=== PATIENT | female | born 1960 | race Two or more races ===

== ENCOUNTER 2024-07-03 18:42 | Emergency (ER) | payer OTHER ==
[~2024-07-03] VITALS: Ht 154.9 cm; Wt 54.9 kg
[2024-07-03] MEDS ORDERED: CIPROFLOXACIN IN 5 % DEXTROSE 400 MG/200 ML PIGGYBAG IV ONE (19:45)
[2024-07-03] MEDS ORDERED: FAMOtidine 10 MG/ML (4ML VIAL) IV ONE (19:45)
[2024-07-03] MEDS ORDERED: 0.9 % SODIUM CHLORIDE 1,000 ML IV ONE (19:45)
[2024-07-03] MEDS ORDERED: KETOROLAC TROMETHAMINE 60 MG VIAL IM ONE (19:45)
[2024-07-03] MEDS ORDERED: ONDANSETRON HCL 2 MG/ML VIAL IV ONE (19:45)
[2024-07-03 19:56] LABS: HEMATOCRIT 35.3 % (36.0-45.00); HEMOGLOBIN 12.1 g/dL (12.0-15.00); MEAN CORPUSCULAR HEMOGLOBIN 30.5 pg (27.00-32.0); MEAN CORPUSCULAR HGB CONC 34.3 g/dl (32.0-36.0); PLATELET COUNT 369 K/uL (150-450); RED BLOOD COUNT 3.96 M/uL (4.00-6.00); RED CELL DISTRIBUTION WIDTH 13.8 % (11.5-14.5)
[2024-07-03 20:29] LABS: ALBUMIN 3.6 gm/dL (3.4-5.0); BILIRUBIN TOTAL 0.56 mg/dL (0.3-1.2); CALCIUM 8.9 mg/dL (8.5-10.1); CREATININE SERUM 0.98 mg/dL (0.55-1.02); GFR 57.5; GLOBULINA 3.9 G/DL (2.4-3.5); POTASSIUM 3.87 mEq/L (3.5-5.1); TOTAL PROTEIN 7.5 gm/dL (6.4-8.2)
[2024-07-03 21:23] LABS: PH,URINE 5.5 (5.0-8.0); URINE APPEARANCE Clear; URINE BILIRRUBIN Negative (NEGATIVE); URINE BLOOD Negative; URINE COLOR Dark Yellow; URINE GLUCOSE Negative (NEGATIVE); URINE KETONE Trace (NEGATIVE); URINE LEUKOCYTE Small; URINE NITRATE Positive; URINE PROTEIN 30 (NEGATIVE); URINE UROBILINOGEN 0.2 E.U./dl
[2024-07-03 21:26] LABS: URINE BACTERIA 631.5 uL (0.0-1933); URINE EPITHELIAL CELLS 19.3 uL (0.0-38.8); URINE RBC 3.6 uL (0.0-20.8); URINE WBC 60.4 uL (0.0-23.2)
[2024-07-03 21:31] LABS: FECAL LEUKOCYTES NEGATIVE (NEGATIVE); URINE CAST 1.03 uL (0.0-1.40); ob NEGATIVE (NEGATIVE)
[2024-07-03] MEDS ORDERED: PROMETHAZINE HCL 25 MG/ML AMPUL IM ONE (22:15)
[2024-07-04] MEDS ORDERED: PHENERGAN25 MG PO (05:12)
[2024-07-04] MEDS ORDERED: OMEPRAZOLE40 MG PO (05:12)
[2024-07-04] MEDS ORDERED: PEPCID40 MG PO (05:12)
== END 2024-07-04 05:24 ==
LOC: ER 18:44
PROVIDERS: General Practice
DX: R10.84 Generalized abdominal pain (principal); K29.60 Other gastritis without bleeding; M79.7 Fibromyalgia